=== PATIENT | female | born 1975 | race Caucasian/White ===

== ENCOUNTER 2018-09-17 15:53 | Emergency (ER) | payer OTHER ==
--- OUTSIDE RECORDS SUMMARY | 2018-09-17 16:39 | XMS REPORT | Continuity of Care Document ---
:1975 External Reference #:[id number] Author Name Camille Novak Care Team Providers Name Role Phone Clint Zuñiga MD Primary Care Physician Unavailable Payers Type Date Identification Numbers Payment Provider Subscriber Effective: 2018 Policy Number: [id number] Adam Novak PayID: [id number] [address] [place] [address] Expires: 2018 Policy Number: [id number] Medicaid Kirstin Novak Group Name: 1 1 [address] PayID: [id number] [place] [address] Expires: 2018 Policy Number: [id number] Adam Novak PayID: [id number] [address] [place] [address] Advance Directives Description No Information Available Problems Date Description Provider Status Onset: 06/07/2018 Localized, primary osteoarthritis of the Clint Gomes MD Active hand Family History Date Family Member(s) Problem(s) Comments General Diabetes General Cancer Social History Type Date Description Comments Sex Unknown Marital Status Lives With Occupation Not Currently Working ETOH Use Denies alcohol use Recreational Drug Use Denies Drug Use Tobacco Use Start: Unknown Light tobacco smoker (10 or fewer cigarettes/day) Smoking Status Reviewed: 08/23/18 Light tobacco smoker (10 or fewer cigarettes/day) Allergies, Adverse Reactions, Alerts Description No Known Drug Allergies Medications Medication Date Status Form Strength Qnty SIG Indications Ordering Provider Hydrocodone-A Active Tablets 5-325mg 20tabs 1-2 tabs Clint cetaminophen 018 every 4-6 MD Eliseo hours as needed for pain. max 6 per day Lisinopril-Hy /0 Active Tablets 20-25mg 90tabs 1 by Unknown drochlorothia 000 mouth zide every day Ventolin HFA Active Aerosol 108(90Base) inhale 2 Unknown 000 mcg/Act puffs by mouth every 4 hours if needed Advil Active Tablets 200mg as needed Unknown 000 Meloxicam Hx Tablets 7.5mg 30tabs take one Yogi M 018 - tab daily MD Dana w food as 018 needed Valsartan Hx Tablets 160mg 1 po qday Unknown 000 - 018 Medications Administered in Office Medication Date Status Form Strength Qnty SIG Indications Ordering Provider Celestone 3 mg Administered Injection Yogi M and 3mg 018 MD Dana Celestone 3 mg Administered Injection Yogi M and 3mg 018 MD Dana Immunizations Description No Information Available Vital Signs Date Vital Result Comment 08/23/2018 12:56pm Height 64 inches 5'4" Weight 168.00 lb BP Systolic 122 mmHg BP Diastolic 82 mmHg BMI (Body Mass Index) 28.8 kg/m2 08/02/2018 2:01pm Height 64 inches 5'4" Weight 168.00 lb BP Systolic 142 mmHg BP Diastolic 90 mmHg Body Temperature 98.9 F BMI (Body Mass Index) 28.8 kg/m2 07/05/2018 11:41am Height 64 inches 5'4" Weight 168.00 lb Heart Rate 70 /min BP Systolic 124 mmHg BP Diastolic 76 mmHg Pain Level 10 BMI (Body Mass Index) 28.8 kg/m2 06/07/2018 10:08am Height 64 inches 5'4" Weight 169.00 lb BP Systolic 158 mmHg BP Diastolic 90 mmHg Pain Level 8 BMI (Body Mass Index) 29.0 kg/m2 06/06/2018 9:09am Height 64 inches 5'4" Weight 169.00 lb BP Systolic 124 mmHg BP Diastolic 84 mmHg BMI (Body Mass Index) 29.0 kg/m2 05/28/2018 9:53am Height 64 inches 5'4" Weight 180.00 lb BP Systolic Sitting 116 mmHg BP Diastolic Sitting 68 mmHg Respiratory Rate 16 /min Pain Level 5 with activity she ias 8/10 pain. BMI (Body Mass Index) 30.9 kg/m2 04/18/2018 9:17am Height 64 inches 5'4" Weight 180.00 lb BP Systolic Sitting 116 mmHg BP Diastolic Sitting 68 mmHg Respiratory Rate 16 /min Pain Level 8 BMI (Body Mass Index) 30.9 kg/m2 02/22/2018 8:56am Height 64 inches 5'4" Weight 180.00 lb BP Systolic Sitting 124 mmHg BP Diastolic Sitting 72 mmHg Respiratory Rate 16 /min Pain Level 5 can spike to a 9 BMI (Body Mass Index) 30.9 kg/m2 Results Test Date Facility Test Result H/L Range Note Laboratory test 07/22/2018 [facility] Surgical SEE RESULT [address] [place] [address] [phone] 2 SEE RESULT BELOW Name: KIRSTIN NOVAK : [address]: Clint Gomes MD Acct: [id number] Unit: [id number] AGE: 42 Location: OR Re07/22/18 SEX: F Status: [facility] [place] SPEC: [id number] NEHA: 07/22/[address] [facility] [address]: Clint Gomes MD REQ: [id number] RECD: 07/22/18 STATUS: DOLLYT _ ORDERED: Senia, LEVEL 3 FINAL DIAGNOSIS Bone and cartilage, trapezium, resection: -- Severe degenerative osteoarthritic changes. PRE-OPERATIVE DIAGNOSIS Unilateral primary osteoarthritis first carpometatarsal GROSS DESCRIPTION The specimen is received in formalin labeled, Trapezium Right, and consists of a 1.4 x 1.2 x 1.1 cm infante-white ovoid bone fragment partially surfaced by a glistening smooth infante-pink articular surface. Regional Trainer sections, one cassette following decalcification. Signed by and Reported on: Johny Al MD 1617 END OF REPORT DEPARTMENT OF PATHOLOGY, [address] [place] [address] Johny Al M.D. Director [facility] # [id number] Procedures Date Code Description Status 08/02/2018 16487 Short Arm Splint Application Completed 07/22/2018 64261 Tendon Transfer CMC/Hand W/O Free Graft Completed 07/22/2018 00291 Tendon Transfer CMC/Hand W/O Free Graft Completed 07/22/2018 15354 Trigger Finger Release Incision / Tendon Sheath Incision Completed 07/22/2018 25538 Arthroplasty Interposition Intercarpal Or Carpometacarpal Completed JTS 07/22/2018 98756 Arthroplasty Interposition Intercarpal Or Carpometacarpal Completed JTS 07/22/2018 98886 Carpectomy One Bone Completed 07/22/2018 55896 Carpectomy One Bone Completed 05/28/2018 99939 Rad Exam; Hand Comp Completed 04/18/2018 49722 Rad Exam; Hand Comp Completed 04/18/2018 57156 Short Arm Cast Application Completed 02/22/2018 40558 Rad Exam; Both Knees, Standing Ap Completed 02/22/2018 92557 Inject/Drain Joint/Bursa Major W/O US Completed Encounters Type Date Location Provider Dx Diagnosis Office Visit 06/07/2018 [facility] Clint M18.11 Unil primary osteoarth of 9:30a [facility] first carpometacarp AT [place] joint, r hand Office Visit 06/06/2018 [facility] Yogi Lara M79.641 Pain in right hand 9:15a [facility] Cort[facility] MD [facility] [place] Office Visit 05/28/2018 [facility] Yogi Lara M79.641 Pain in right hand 9:45a [facility] [place] Office Visit 04/18/2018 [facility] Yogi Lara S63.641A Sprain of 9:30a [facility] Cort[facility] MD metacarpophalangeal joint AT [place] of right thumb, init M79.641 Pain in right hand Office Visit 02/22/2018 [facility] Y[facility] Lara M22.2x1 Patellofemoral 9:00a [facility] Cort[facility] MD disorders, right AT [place] knee M22.2x2 Patellofemoral disorders, left knee M25.561 Pain in right knee M25.562 Pain in left knee Plan of Treatment Future Appointment(s):11/22/2018 8:00 am - Clint Gomes MD at [facility] AT Kkgrqrlt22/21/2018 - Clint Gomes MDM18.11 Unilateral primary osteoarthritis of first carpometacarpal jFollow up:Follow up: 3 [id number] Trigger thumb, right thumb
[2018-09-17 16:52] VITALS: BP 153/93
--- NOTE | 2018-09-17 17:04 | UC ---
UC General HPI - HPI Summary HPI Summary: PT HAD COUGH, FEVER/CHILLS AND SINUS PRESSURE X 1 WEEK. THE URI MOVED TO HER CHEST AND SHE HAS ONGOING WHEEZING, SOB AND A HX OF ASTHMA. MDI NOT HELPING. - History of Current Complaint Chief Complaint: UCRespiratory Stated Complaint: SINUS,BI LAT EAR, CONGESTION Time Seen by Provider: 09/17/18 16:46 Hx Obtained From: Patient Hx Last Menstrual Period: Uterine Ablation Onset/Duration: Gradual Onset Timing: Constant Pain Intensity: 6 - Allergy/Home Medications Allergies/Adverse Reactions: Allergies Allergy/AdvReac Type Severity Reaction Status Date / Time Penicillins Allergy Rash Verified 09/17/18 16:48 PMH/Surg Hx/FS Hx/Imm Hx Cardiovascular History: Hypertension Respiratory History: Asthma - Surgical History Surgical History: Yes Surgery Procedure, Year, and Place: uterine ablation, tubal ligation, 2 bunions on right, 1 bunion on left, bone graft RIGHT foot. , RIGHT thumb sx - Family History Known Family History: Positive: None - Social History Alcohol Use: None Substance Use Type: None Smoking Status (MU): Heavy Every Day Tobacco Smoker Type: Cigarettes Amount Used/How Often: 1/2 PPD X 20 YEARS Length of Time of Smoking/Using Tobacco: 26 Years Have You Smoked in the Last Year: No Household Exposure Type: Cigarettes Review of Systems All Other Systems Reviewed And Are Negative: Yes Constitutional: Positive: Fever, Chills Skin: Positive: Negative Eyes: Positive: Negative ENT: Positive: Ear Ache, Sinus Congestion Respiratory: Positive: Shortness Of Breath, Cough Cardiovascular: Negative: Chest Pain Gastrointestinal: Positive: Negative Genitourinary: Positive: Negative Motor: Positive: Negative Neurovascular: Positive: Negative Musculoskeletal: Positive: Negative Neurological: Positive: Negative Psychological: Positive: Negative Physical Exam Triage Information Reviewed: Yes Appearance: Well-Appearing Vital Signs: Initial Vital Signs Temp 98.6 F 09/17/18 16:48 Pulse 104 09/17/18 16:48 Resp 17 09/17/18 16:48 BP 153/93 09/17/18 16:48 Pulse Ox 100 09/17/18 16:48 Vital Signs Reviewed: Yes Eyes: Positive: Conjunctiva Clear ENT: Positive: Pharynx normal, TMs normal. Negative: Nasal congestion, Nasal drainage Neck: Positive: Supple, Nontender, No Lymphadenopathy Respiratory: Positive: No respiratory distress, Decreased breath sounds, Other: - FEW SCATTERED WHEEZES AND CONGESTED HARSH COUGH. Cardiovascular: Positive: RRR, No Murmur. Negative: Tachycardia Abdomen Description: Positive: Nontender, No Organomegaly, Soft Bowel Sounds: Positive: Present Musculoskeletal: Positive: ROM Intact Neurological: Positive: Alert Psychological: Positive: Age Appropriate Behavior Skin Exam: Normal Course/Dx - Diagnoses Provider Diagnosis: Asthma Discharge - Sign-Out/Discharge Documenting (check all that apply): Patient Departure All imaging exams completed and their final reports reviewed: No Studies - Discharge Plan Condition: Stable Disposition: HOME Prescriptions: Azithromycin TAB* [Zithromax TAB (Z-ALICIA) 250 mg #6 tabs] 2 tab PO .TODAY, THEN 1 DAILY #1 alicia predniSONE [Prednisone 20 MG TAB] 40 mg PO DAILY 5 Days #10 tablet Patient Education Materials: Asthma (ED) Referrals: Clint Zuñiga MD [Primary Care Provider] - 7 Days Additional Instructions: USE RESCUE INHALER 2 PUFFS EVERY 6 HOURS. - Billing Disposition and Condition Condition: STABLE Disposition: Home
== END 2018-09-17 17:12 | disposition home or self-care (01) ==
LOC: UCCORT 15:53
DX: J45.909 Unspecified asthma, uncomplicated (principal); F17.210 Nicotine dependence, cigarettes, uncomplicated; Z88.0 Allergy status to penicillin; I10 Essential (primary) hypertension
CPT/HCPCS: 99212; G0463